=== PATIENT | female | born 1955 | race Caucasian/White ===

== ENCOUNTER 2024-04-27 10:54 | Outpatient (AMB) | payer MEDICARE, SELFPAY ==
--- NOTE | 2024-04-27 11:00 | AM.OFFWIN_ITS ---
Intake Vital Signs 04/27/24 11:01 Height 5 ft 3 in Weight 183 lb BMI 32.4 BP 122/80 Blood Pressure Location Rt brachial Position Sitting Pulse 76 Pulse Source Pulse Oximeter Temp 97.8 F Temp Source Temporal Artery Scan Pulse Oximetry (%) 98 Oxygen Delivery Method Room Air Intake Visit Reasons: [employer] Runny nose, cough, upset stomach, ?strep Intake Note: patient is here for runny nose, cough, upset stomach, had a positive covid test at home with an itchy ear also. Patient Tobacco Use Status: Current everyday Tobacco user Allergies amoxicillin [From Augmentin] Allergy (Mild, Verified 04/27/24 11:02) Unknown clavulanic acid [From Augmentin] Allergy (Mild, Verified 04/27/24 11:02) Unknown Do you need a note to return to daycare/school/sports/work: No HPI HPI Comments History of Present Illness Details 68-year-old female presents for upper re spiratory symptoms. Cough congestion runny nose since the . Developed a headache more recently on couple days ago to the COVID test was positive. But thinks she did wrong. Also endorses sore throat. [facility] Social History Patient Tobacco Use Status: Current everyday Tobacco user Physical Exam Vital Signs: Last Vital Signs Temp 97.8 F 04/27/24 11:01 Pulse 76 04/27/24 11:01 BP 122/80 04/27/24 11:01 Pulse Ox 98 04/27/24 11:01 Oxygen Delivery Method Room Air 04/27/24 11:01 BMI result Body Mass Index 32.4 Const General: cooperative, healthy appearing, no acute distress and alert Orientation/consciousness: patient oriented x3 Limitations: no limitations HEENT Other: Mild erythema in the posterior pharynx tonsils 1+ bilaterally question of 1 white spot on the left tonsil. Head: Yes normal to inspection Ears: hearing grossly normal bilaterally General nose exam: Normal external nose present Resp Effort & Inspection: normal respiratory effort and able to speak in complete sentences Cardio Rate: regular rate Skin General skin exam: no rashes or lesions noted Neuro General: patient oriented x3 Extrem General: Yes normal to inspection Assessment & Plan Assessment & Plan (1) URI (upper respiratory infection): Code(s): J06.9 - Acute upper respiratory infection, unspecified Qualifiers: URI type: unspecified viral URI Qualified Code(s): J06.9 - Acute upper respiratory infection, unspecified Plan: Suspects patient's symptoms most consistent with recent COVID positivity test. Extensive discussion with patient to explain that the likelihood of her incorrectly completing the test and getting a positive result is highly unlikely. Also in the presence of a positive result in URI symptoms most likely she has a true COVID positivity. Patient adamant about wanting COVID tests we will oblige. Given the new 1 white spot in the back of her throat will also stop. Patient likely suffering from pharyngitis 2/2 COVID. With regards to patient's nasal congestion recommend switching to Flonase as well as cetirizine. Continue with saline rinses. In the absence of fever or tenderness to palpation over the sinuses on exam lower suspicion for acute sinus infection. Plan -COVID test, strep test -Flonase q.d. as needed -cetirizine 10 mg q.d. Orders: Orders AMB Rapid Strep Screen Today Z13.9 - Encounter for screening, unspecified BinaxNOW Covid-19 Ag Today J06.9 - Acute upper respiratory infection, unspecified Coding Level of Care Code Est Pt Level 4 (56382) Diagnoses Viral upper respiratory tract infection J06.9 URI type: unspecified viral URI
[2024-04-27 11:01] VITALS: BP 122/80; PULSE 76; TEMP 36.6; O2SAT 98; BMI 32.4
== END 2024-04-27 11:31 | disposition home or self-care (01) ==
PROVIDERS: PCP Physician Assistant; Visit Provider Physician Assistant
DX: Z13.9 Encounter for screening, unspecified (principal); J06.9 Acute upper respiratory infection, unspecified
CPT/HCPCS: 87880; 99051; 99214

== ENCOUNTER 2024-04-27 11:53 | Outpatient (REF) | payer MEDICARE, SELFPAY ==
[2024-04-27 12:11] LABS: Binax Internal Control QC Valid; Binax Now Covid-19 Ag Positive (Negative)
== END 2024-04-27 11:54 | disposition home or self-care (01) ==
LOC: HO.HMGCLDS 11:53
PROVIDERS: PCP Physician Assistant; Visit Provider Physician Assistant
DX: J06.9 Acute upper respiratory infection, unspecified (principal)
CPT/HCPCS: 87811